=== PATIENT | female | born 1950 | race Caucasian/White ===

== ENCOUNTER 2016-06-22 08:09 | Day surgery (SDC) | payer BC ==
[~2016-06-22] VITALS: Ht 162.6 cm; Wt 74.8 kg
[~2016-06-22 08:09] MED LIST: BUPIVAC MPF-EPI 0.5%-1:200000 30 ML VIAL. ONE; CEFAZOLIN 2GM PREMIX 50 ML IV ONE; FENTANYL PF 100 MCG/2 ML VIAL. IV PRN; HYDROMORPHONE 2 MG/ML VIAL. IV PRN; IOHEXOL 300 MG/ML 50 ML VIAL. ONE; IV RINGERS,LACTATED 1000ML 1,000 ML IV SCH; LIDOCAINE 1% 1 ML SYRINGE. ID PRN; MORPHINE SULFATE 2 MG/ML DISP.SYRIN. IV PRN; ONDANSETRON PF 4 MG/2 ML VIAL. IV PRN; PROCHLORPERAZINE 10 MG/2 ML VIAL. IV PRN; SURGICEL HEMOSTAT 4X8 EACH. ONE
[2016-06-22] MEDS ORDERED: GEMF600T3 PO (08:38)
[2016-06-22] MEDS ORDERED: LISI30TA4 PO (08:39)
[2016-06-22] MEDS ORDERED: LEVO100T5 PO (08:39)
[2016-06-22] MEDS ORDERED: CHOL10003 PO (08:40)
[2016-06-22] MEDS ORDERED: ASPI-482 PO (08:40)
[2016-06-22] MEDS ORDERED: CALC500T50 PO (08:41)
[2016-06-22] MEDS ORDERED: ROCURONIUM 50 MG/5 ML VIAL. ONE (09:46)
[2016-06-22] MEDS ORDERED: DEXAMETHASONE SOD PHOS 20 MG/5 ML VIAL. ONE (09:46)
[2016-06-22] MEDS ORDERED: LIDOCAINE 2% 100 MG/5 ML SYRINGE. ONE (09:46)
[2016-06-22] MEDS ORDERED: PROPOFOL 20 ML IV ONE (09:46)
[2016-06-22] MEDS ORDERED: ONDANSETRON PF 4 MG/2 ML VIAL. ONE (09:46)
[2016-06-22] MEDS ORDERED: FENTANYL PF 250 MCG/5 ML VIAL. ONE (09:46)
[2016-06-22] MEDS ORDERED: ONDA4TAB7 PO (10:08)
[2016-06-22] MEDS ORDERED: OXYC-323 PO (10:08)
--- NOTE | 2016-06-22 10:48 | RAD ---
Intraoperative cholangiogram, 06/22/2016: History: Cholecystectomy 4 spot films from surgery are presented for review. Contrast has been injected into the cystic duct remnant. 59 seconds of fluoroscopy time was utilized. There is good flow of contrast into the duodenum at the ampulla. No filling defect is seen in the common duct to suggest a retained calculus. There was preferential distal flow of the injected contrast with no significant intrahepatic extension of the contrast. No contrast extravasation is seen. IMPRESSION: 1. No evidence of a retained common bile duct calculus. 2. No intrahepatic extension of the contrast, likely on a technical basis.
[2016-06-22] MEDS ORDERED: SEVOFLURANE 61 TO 120 MINUTES. IH ONE (10:50)
[2016-06-22] MEDS ORDERED: GLYCOPYRROLATE 1 MG/5 ML VIAL. ONE (10:51)
[2016-06-22] MEDS ORDERED: NEOSTIGMINE METHYLSULFATE 5 MG/5 ML SYRINGE. ONE (10:51)
--- NOTE | 2016-06-22 11:10 | PDOC ---
BRIEF OPERATIVE NOTE Pre-Op Diagnosis #[id number] cholelithiasis lap [place], ioc k kirstie briceño ebl 10 ivf 500 paris well to rr stable. LESLEE MCCOY MD Jun 22, 2016 11:10
[2016-06-22] MEDS: FENTANYL PF 100 MCG/2 ML VIAL. IV PRN ×2 (11:23→11:35)
[2016-06-22] MEDS ORDERED: OXYCODONE/APAP 5/325 TABLET. PO ONE (12:15)
[2016-06-22 13:20] VITALS: BP 138/74
[2016-06-22] MEDS ORDERED: OXYCODONE/APAP 5/325 TABLET. PO PRN (13:45)
--- NOTE | 2016-06-22 17:33 | OP ---
DATE OF SURGERY: 06/22/2016 PREOPERATIVE DIAGNOSIS: Symptomatic cholelithiasis. POSTOPERATIVE DIAGNOSIS: Symptomatic cholelithiasis. PROCEDURE: Laparoscopic cholecystectomy with intraoperative cholangiogram. SURGEON: Dr. Leslee Mccoy. ANESTHESIA: General. ESTIMATED BLOOD LOSS: 10 mL. IV FLUIDS: 500 mL. INDICATIONS: The patient is a 65-year-old female who presents with symptomatic cholelithiasis. FINDINGS: Intraoperative cholangiogram showed free flow of contrast into the duodenum. There were no filling defects in the visualized portions of the biliary duct. DESCRIPTION OF PROCEDURE: After informed consent was obtained, the patient was taken to the operating room and placed in the supine position. After adequate induction of general anesthesia, she was prepped and draped in the usual sterile fashion. An umbilical skin incision was made with a scalpel and subcutaneous tissues with hemostat. [facility] was used to grab the fascia and lift it anteriorly. Veress was used to gain access to the peritoneal cavity. Low opening pressures confirmed intraperitoneal placement of Veress. Pneumoperitoneum to 15 mmHg was established followed by placement of 5-mm port. A 5-mm 30-degree lens was inserted which revealed good port placement. No evidence of entry trauma. She was placed head up rotated towards her left. Three additional ports were placed under direct vision. The sites were injected with local anesthetic. Skin incisions were made, and two 5-mm right lateral ports and one 11-mm epigastric port were placed. The fundus of the gallbladder was retracted over liver and slightly towards the right. The infundibulum was retracted towards the right and towards her toes to open triangle of Calot. The leading peritoneal edge was scored with cautery medially and laterally and carried back towards the liver at the level of the infundibulum. [place] dissector was used to dissect out the triangle of Calot. At the completion of dissection, the gallbladder had been dissected away from the cystic plate. Two structures were seen leading directly to the gallbladder, one was the cystic artery and one was the cystic duct. The liver could be seen behind the gallbladder. The base of the gallbladder was free of extraneous tissue. The gallbladder had been partially dissected away from the liver bed. Two clips were placed on cystic artery proximally, one distally, and a clip was placed on cystic duct adjacent to the gallbladder. Ductotomy was made with scissors. Cystic artery was transected sharply. Ductotomy was made with scissors, and an intraoperative cholangiogram showed free flow of contrast to the cystic duct, common bile duct, the beginning of the common hepatic duct and free flow of contrast into the duodenum. The patient was placed flat, and there was more filling of the common hepatic duct but due to preferential flow of the contrast into the duodenum the more proximal biliary tree was not opacified. At this point, the cholangiogram was completed, and 3 clips were placed on the cystic duct distal to the ductotomy. Ductotomy was completed with scissors. The gallbladder was removed from bed of the liver with cautery and placed in a laparoscopic bag and was brought out through the epigastric incision. The right upper quadrant was irrigated. Irrigant returned clear. There was minimal amount of bleeding from the liver bed that was easily controlled with cautery. Fascial closure device was used to close the fascia at the epigastric incision using 0 Vicryl suture. Ports were removed under direct vision. They were hemostatic. Pneumoperitoneum was desufflated. Before removing the camera, one final look at the right upper quadrant revealed it to continue to be hemostatic. The ports were removed under direct vision. They were hemostatic. Pneumoperitoneum was desufflated. Skin incisions were closed with 4-0 Monocryl in subcuticular fashion. Sterile dressings were placed. She tolerated the procedure well. There were no apparent complications. She was transferred in stable condition to the recovery room. LESLEE MCCOY MD DR: DAILY/abner JOB#: [id number] / [id number] WM Goodwin MD
--- NOTE | 2016-06-23 13:52 | PATHOLOGY ---
PATHOLOGY REPORT * * * * * * * * FINAL DIAGNOSIS: Gallbladder, cholecystectomy: - Chronic cholecystitis. - Cholesterolosis. - Cholelithiasis. (ELODIA:; d/t: 06/23/16) REPORT ELECTRONICALLY SIGNED BY: Magno Okeefe M.D. DATE/TIME: 06/23/2016 13:51 * * * * * * * * GROSS PATHOLOGY: Received in formalin labeled "Alma Koch, gallbladder and contents," is a 10.1 x 3.4 x 3.1 cm, intact gallbladder with pink-dumont serosal surfaces. Opening the gallbladder reveals a velvety, bile-stained mucosa with moderate, diffuse cholesterolosis and an average wall thickness of 0.1 cm. Calculi are present displaying a yellow-arreola a multinodular appearance, and no masses are noted grossly. Software Developer Intern sections from the body and fundus are submitted along with the proximal margin in cassette A1. (CAA; 06/22/2016) INITIAL CPT CODE(S): A; 96671 Professional services performed by [facility] [place] [address] Technical services performed by [facility] at [address] [place] [address]. SPECIMEN(S) RECEIVED: A.Gallbladder and contents CLINICAL HISTORY: Cholelithiasis PATIENT: ALMA KOCH /AGE: 507/27/1950 (Age: 65) PATIENT #: [id number] ALT CASE #: SPECIMEN COLLECTION DATE: 06/22/2016 SPECIMEN RECEIVED DATE: 06/22/2016 [facility] [place] [address] - PHONE: [phone] * * * END OF REPORT * * *
== END 2016-06-22 13:31 | disposition home or self-care (01) ==
LOC: SURG 08:09
PROVIDERS: ATTEND Surgery
DX: K82.4 Cholesterolosis of gallbladder (principal); K80.10 Calculus of gallbladder with chronic cholecystitis without obstruction; E78.00 Pure hypercholesterolemia, unspecified; I10 Essential (primary) hypertension; M17.10 Unilateral primary osteoarthritis, unspecified knee; E03.9 Hypothyroidism, unspecified
CPT/HCPCS: 47563; 74300; C1782; J0690; J1100; J2405; J2704; J2710; J3010; J3490; J7030; J7120; Q9967; 88304

== ENCOUNTER → 2016-08-17 | Outpatient (CLI) | payer MEDICARE, BC ==
[~2016-08-17] MED LIST changes: +ASPI-482 PO; -BUPIVAC MPF-EPI 0.5%-1:200000 30 ML VIAL. ONE; +CALC500T54 PO; -CEFAZOLIN 2GM PREMIX 50 ML IV ONE; +CHOL10003 PO; -FENTANYL PF 100 MCG/2 ML VIAL. IV PRN; +GEMF600T3 PO; -HYDROMORPHONE 2 MG/ML VIAL. IV PRN; -IOHEXOL 300 MG/ML 50 ML VIAL. ONE; -IV RINGERS,LACTATED 1000ML 1,000 ML IV SCH; +LEVO100T5 PO; -LIDOCAINE 1% 1 ML SYRINGE. ID PRN; +LISI30TA4 PO; -MORPHINE SULFATE 2 MG/ML DISP.SYRIN. IV PRN; +ONDA4TAB7 PO; -ONDANSETRON PF 4 MG/2 ML VIAL. IV PRN; +OXYC-323 PO; -PROCHLORPERAZINE 10 MG/2 ML VIAL. IV PRN; -SURGICEL HEMOSTAT 4X8 EACH. ONE
--- NOTE | 2016-08-17 18:21 | KCIC ---
Bilateral digital screening mammograms: Reason for examination: Routine screening. Comparison is made to previous studies dated 06/29/2015 and 06/19/2014. The skin and nipples show no abnormalities. No abnormal axillary lymph nodes are seen. The breast parenchyma shows scattered fibroglandular density. (Breast density: Category B.) There are no dominant masses, suspicious calcifications or architectural distortions. Impression: No evidence of malignancy. Recommend routine screening. BI-RADS Category 1: Negative. "Our facility is accredited by the [employer] Mammography Program." This patient's information has been entered into a reminder system for the patient to be notified with the results of her examination and a target date for the next mammogram. Electronically signed by: Joleen Melendez MD (08/17/2016 6:18 PM)
== END | disposition home or self-care (01) ==
LOC: KCIC MAMMO 13:32
PROVIDERS: ATTEND Internal Medicine
DX: Z12.31 Encounter for screening mammogram for malignant neoplasm of breast (principal)
CPT/HCPCS: G0202; 77067

== ENCOUNTER → 2017-09-11 | Outpatient (CLI) | payer MEDICARE, BC | END | disposition home or self-care (01) | LOC: KCIC MAMMO 10:47 | DX: Z12.31 Encounter for screening mammogram for malignant neoplasm of breast (principal); I10 Essential (primary) hypertension; E78.00 Pure hypercholesterolemia, unspecified | CPT/HCPCS: 77063; 77067 ==

== ENCOUNTER → 2018-09-20 | Outpatient (CLI) | payer MEDICARE, BC ==
[~2018-09-20] MED LIST changes: -GEMF600T3 PO; +GEMF600T8 PO; -OXYC-323 PO; +OXYC1TAB15 PO
--- NOTE | 2018-09-20 16:27 | KCIC ---
BILATERAL SCREENING MAMMOGRAM, 3-D History: Routine screening. Comparison: Bilateral mammogram September 11, 2017. Technique: MLO and CC digital tomosynthesis (3D) images obtained. Radiologist reviewed these images on dedicated workstation. Findings: Breast Tissue Density B : There are scattered areas of fibroglandular density. There are no dominant masses, suspicious microcalcifications, or architectural distortion. IMPRESSION: No mammographic evidence of malignancy. Recommend routine screening. BI-RADS category 1: Negative. The images were reviewed with computer-aided detection. Patient information is entered into reminder system with a target due date for the next screening mammogram. Mammography is the most sensitive method for finding small breast cancers, but it does not detect them all and is not a substitute for careful clinical examination. A negative mammogram does not negate a clinically suspicious finding and should not result in delay in biopsying a clinically suspicious abnormality. "Our facility is accredited by the [employer] Mammography [employer]." Electronically signed by: Tito Galvez MD (09/20/2018 4:24 PM) [id number]
== END | disposition home or self-care (01) ==
LOC: KCIC MAMMO 09:03
PROVIDERS: ATTEND Internal Medicine
DX: Z12.31 Encounter for screening mammogram for malignant neoplasm of breast (principal)
CPT/HCPCS: 77063; 77067

== ENCOUNTER → 2019-10-22 | Outpatient (CLI) | payer MEDICARE, BC ==
--- NOTE | 2019-10-22 16:50 | KCIC ---
Bilateral digital screening mammograms with 3-D tomosynthesis: Reason for examination: Routine screening. Comparison is made to previous studies dated back to 06/29/2015. Bilateral mammograms in CC and oblique projections were obtained with 2-D imaging and 3-D tomosynthesis imaging on a Siemens Inspiration unit and reviewed on the workstation. Interpretation was made with the benefit of CAD. The skin and nipples show no abnormalities. No abnormal axillary lymph nodes are seen. The breast parenchyma shows scattered fatty and fibroglandular density. (Breast density: Category B.) There are no dominant masses, suspicious calcifications or architectural distortion. Benign calcifications are present. Impression: No evidence of malignancy. Recommend routine screening. BI-RAD Category 2: Benign. "Our facility is accredited by the [employer] Mammography Program." This patient's information has been entered into a reminder system for the patient to be notified with the results of her examination and a target date for the next mammogram. Electronically signed by: Joleen Melendez MD (10/22/2019 4:47 PM) [id number]
== END | disposition home or self-care (01) ==
LOC: KCIC MAMMO 13:46
PROVIDERS: ATTEND Internal Medicine
DX: Z12.31 Encounter for screening mammogram for malignant neoplasm of breast (principal); N64.89 Other specified disorders of breast
CPT/HCPCS: 77063; 77067

== ENCOUNTER → 2020-10-30 | Outpatient (CLI) | payer MEDICARE, BC ==
[~2020-10-30] MED LIST changes: +GEMF600T20 PO; -GEMF600T8 PO
--- NOTE | 2020-10-30 10:13 | KCIC ---
EXAM: DUAL ENERGY X-RAY ABSORPTIOMETRY (DEXA). HISTORY: Postmenopausal screening. Osteopenia. FINDINGS: The lowest measured T-score is -1.5 in the lumbar spine, based on a bone mineral density of 0.883 g/cm^2. Refer to the worksheets for full detail. No comparison examinations are available. IMPRESSION: 1. Low bone mass. Bone mineral density yields a T-score between -1.0 and -2.5. Fracture risk is incre ased. 2. FRAX report: Not calculated. METHODOLOGY: Dual energy x-ray absorptiometry was performed to measure bone mineral density. The foll owing analysis is based on the 2019 Official Positions of the International Society for Clinical Dens itometry: Measurements of the hips and the average of L1-L4 are preferred. When the spine and/or hip cannot be feasibly measured or interpreted, or in the setting of hyperparathyroidism, distal radial bone minera l density may be measured. The lumbar spine T-score is based on the average bone mineral density of L1-L4. In the setting of art ifact or anatomic abnormality, some lumbar levels may be excluded, and the remaining levels used for calculation. A single lumbar level is not used for diagnosis, and if only a single level is available for assessment, another anatomic site will be used to assign a diagnosis. The hip T-score is based on the bone mineral density measurement of the femoral neck or total proxima l femur of either side, whichever is lowest. Bilateral mean values are not used for diagnosis. The forearm T-score is derived from 33% of the distal radius of the nondominant forearm. Electronically signed by: Vianney Medina MD (10/30/2020 10:11 AM) [id number]
--- NOTE | 2020-10-30 12:04 | KCIC ---
Bilateral digital screening mammograms with 3-D tomosynthesis: Reason for examination: Routine screening. Comparison is made to previous studies dated back to 06/05/2013. Bilateral mammograms in CC and oblique projections were obtained with 2-D imaging and 3-D tomosynthes is imaging on a Siemens Inspiration unit and reviewed on the workstation. Interpretation was made wit h the benefit of CAD. The skin and nipples show no abnormalities. No abnormal axillary lymph nodes are seen. The breast par enchyma shows scattered fatty and fibroglandular density. (Breast density: Category B.) There are sma ll nodular asymmetries which are stable. There are no new dominant masses, suspicious calcifications or architectural distortion. Benign calcifications are present. Impression: No evidence of malignancy. Recommend routine screening. BI-RAD Category 2: Benign. "Our facility is accredited by the [employer] Mammography Program." This patient's information has been entered into a reminder system for the patient to be notified wit h the results of her examination and a target date for the next mammogram. Electronically signed by: Joleen Melendez MD (10/30/2020 12:02 PM) [email or web address]
== END ==
LOC: KCIC MAMMO 08:49
PROVIDERS: ATTEND Internal Medicine
DX: Z12.31 Encounter for screening mammogram for malignant neoplasm of breast (principal); M85.89 Other specified disorders of bone density and structure, multiple sites; Z78.0 Asymptomatic menopausal state
CPT/HCPCS: 77063; 77067; 77080